=== PATIENT | male | born 1950 | race Caucasian/White ===

== ENCOUNTER 2018-06-22 06:52 | Inpatient (IN) | payer MEDICARE, OTHER ==
[~2018-06-22] VITALS: Ht 180.3 cm; Wt 93.2 kg
[~2018-06-22 06:52] MED LIST: AMLO-93 PO; ASPI-1265 PO; ATEN25TA7 PO; ATOR20TA66 PO; CLOP75TA35 PO; HYDR25TA4 PO; LOSA100T57 PO; PANT-47 PO; POTA20PA40 PO; SERT100T10 PO; TERA2CAP4 PO
[2018-06-22] MEDS ORDERED: levoFLOXACIN-Levaquin 750MG/D5 150 ML IV ONE (07:00)
[2018-06-22 07:17] LABS: CLARITY,URINE CLEAR (Clear); COLOR,URINE YELLOW (Yellow); GLUCOSE, URINE NEGATIVE (Neg); KETONES,URINE NEGATIVE (Neg); LEUKOCYTE ESTERASE ,URINE NEGATIVE (Neg); NITRITES, URINE NEGATIVE (Neg); OCCULT BLOOD,URINE TRACE-LYSED (Neg); PROTEIN,URINE NEGATIVE (Neg)
[2018-06-22 07:18] LABS: UA COLLECTION TYPE CLN CATCH MIDSTREAM
[2018-06-22 07:29] LABS: BACTERIA,URINE NONE SEEN /HPF (Neg); MUCUS STRANDS FEW /LPF (Neg); RBC,URINE 0-2 /HPF (0-2); SQUAMOUS EPITHELIAL CELL,UR FEW /LPF (FEW); WBC,URINE NONE SEEN /HPF (0-4)
[2018-06-22] MEDS ORDERED: methylPREDNISolone sod succ 125mg/2ml vial IV ONE (07:40)
[2018-06-22] MEDS ORDERED: ipratropium/albuterol 3ml nebule NEB ONE (07:40)
[2018-06-22] MEDS ORDERED: albuterol 2.5 MG/3 ML nebule NEB ONE (07:40)
[2018-06-22 08:12] LABS: BASOPHILS # (AUTO) 0.1 X10'3 (0-0.2); BASOPHILS % (AUTO) 0.8 % (0-1); EOSINOPHILS # (AUTO) 0.5 X10'3 (0-0.9); EOSINOPHILS % (AUTO) 4.9 % (0-6); HEMATOCRIT 39.2 % (42.0-52.0); HEMOGLOBIN 13.2 g/dl (14.0-17.9); LYMPHOCYTES # (AUTO) 1.8 X10'3 (1.1-4.8); LYMPHOCYTES % (AUTO) 16.6 % (21-51); MEAN CORPUSCULAR HEMOGLOBIN 33.1 PG (27.0-31.0); MEAN CORPUSCULAR HGB CONC 33.6 % (33.0-36.5); MEAN CORPUSCULAR VOLUME 98.6 FL (78-98); MEAN PLATELET VOLUME 8.9 FL (7.4-10.4); MONOCYTES # (AUTO) 0.9 X10'3 (0-0.9); MONOCYTES % (AUTO) 7.9 % (2-12); NEUTROPHILS # (AUTO) 7.5 X10'3 (1.8-7.7); NEUTROPHILS % (AUTO) 69.8 % (42-75); PLATELET COUNT 231 X10'3 (140-440); RED BLOOD COUNT 3.98 X10'6 (4.70-6.10); RED CELL DISTRIBUTION WIDTH 13.7 % (11.5-14.5); WHITE BLOOD COUNT 10.8 X10'3 (4.5-11.0)
[2018-06-22 08:23] LABS: ALANINE AMINOTRANSFERASE 17 U/L (12-78); ALBUMIN/GLOBULIN RATIO 0.8 (1.1-1.5); ALKALINE PHOSPHATASE 83 IU/L (46-116); ANION GAP 9 (8-16); ASPARTATE AMINO TRANSFERASE 13 U/L (10-37); BILIRUBIN,TOTAL 0.5 MG/DL (0.1-1.0); BLOOD UREA NITROGEN 16 MG/DL (7-18); BUN/CREATININE RATIO 14.4 (5.4-32.0); CALCIUM 8.1 MG/DL (8.5-10.1); CHLORIDE 102 MMOL/L (99-107); CREATININE 1.11 MG/DL (0.60-1.10); GLUCOSE 113 MG/DL (70-104); POTASSIUM 3.3 MMOL/L (3.5-5.1); SODIUM 140 MMOL/L (135-145); TOTAL CARBON DIOXIDE 29.2 MMOL/L (24-32); TOTAL PROTEIN 6.6 G/DL (6.4-8.2); eGFR 66 ML/MIN
[2018-06-22 08:30] LABS: MAGNESIUM 1.7 MG/DL (1.5-2.4)
[2018-06-22 09:55] VITALS: BP 144/68
[2018-06-22 11:00] VITALS: BP 155/78
[2018-06-22] MEDS ORDERED: ondansetron/PF 4mg/2ml inj IV PRN (11:10)
[2018-06-22] MEDS ORDERED: mag hydrox/Alum hydrox/simeth 30ml oral suspension PO PRN (11:10)
[2018-06-22] MEDS ORDERED: magnesium 4gm in 100ml NS 100 ML IV PRN (11:10)
[2018-06-22] MEDS ORDERED: magnesium Cl slow-release 64mg tablet PO PRN (11:10)
[2018-06-22] MEDS ORDERED: morphine 4 MG/ML inj SYRINge IV PRN (11:10)
[2018-06-22] MEDS ORDERED: potassium Cl 40MEQ/NS 500ml 500 ML IV PRN ×2 (11:10)
[2018-06-22] MEDS ORDERED: potassium Cl 20 mEq SR tablet PO PRN (11:10)
[2018-06-22] MEDS ORDERED: acetaminophen 325mg tablet PO PRN (11:10)
[2018-06-22] MEDS ORDERED: magnesium hydroxide 30ml (MOM) UD suspension PO PRN (11:10)
[2018-06-22] MEDS: pantoprazole 40mg Tablet.DR PO SCH (11:29)
[2018-06-22] MEDS: atorvastatin 20mg tablet PO SCH (11:29)
[2018-06-22] MEDS: sertraline 50mg tablet PO SCH (11:29)
[2018-06-22] MEDS: clopidogrel 75mg tablet PO SCH (11:29)
[2018-06-22] MEDS: HYDROchlorothiazide 12.5mg capsule PO SCH (11:29)
[2018-06-22] MEDS: CefTRIAXone/D5W-Rocephin 1gm 50 ML IV SCH (11:29)
[2018-06-22] MEDS: potassium Cl 20 mEq SR tablet PO PRN ×3 (11:41→20:28)
[2018-06-22] MEDS: azithromycin/NS 500mg/250ml 250 ML IV SCH (12:12)
[2018-06-22 16:00] VITALS: BP 123/79
[2018-06-22] MEDS: methylPREDNISolone sod succ/PF 40mg inj. IV SCH ×2 (16:05→23:40)
[2018-06-22 19:00] VITALS: BP 146/65
[2018-06-22] MEDS: atenolol 25mg tablet PO SCH (20:27)
[2018-06-22] MEDS: Terazosin 1mg capsule PO SCH (20:27)
[2018-06-22] MEDS: temazepam 15mg capsule PO PRN (21:50)
[2018-06-22 23:00] VITALS: BP 155/71
[2018-06-23] MEDS: temazepam 15mg capsule PO PRN (02:31)
[2018-06-23 03:00] VITALS: BP 135/84
[2018-06-23 06:00] VITALS: BP 137/92
[2018-06-23 06:41] LABS: BASOPHILS % (AUTO) 0.1 % (0-1); EOSINOPHILS # (AUTO) 0.2 X10'3 (0-0.9); EOSINOPHILS % (AUTO) 0.8 % (0-6); HEMOGLOBIN 13.6 g/dl (14.0-17.9); LYMPHOCYTES # (AUTO) 1.5 X10'3 (1.1-4.8); LYMPHOCYTES % (AUTO) 7.2 % (21-51); MEAN CORPUSCULAR HEMOGLOBIN 32.9 PG (27.0-31.0); MEAN CORPUSCULAR HGB CONC 33.1 % (33.0-36.5); MEAN CORPUSCULAR VOLUME 99.4 FL (78-98); MEAN PLATELET VOLUME 9.5 FL (7.4-10.4); MONOCYTES # (AUTO) 0.6 X10'3 (0-0.9); MONOCYTES % (AUTO) 2.8 % (2-12); NEUTROPHILS # (AUTO) 18.6 X10'3 (1.8-7.7); NEUTROPHILS % (AUTO) 89.1 % (42-75); PLATELET COUNT 247 X10'3 (140-440); RED BLOOD COUNT 4.12 X10'6 (4.70-6.10); RED CELL DISTRIBUTION WIDTH 13.9 % (11.5-14.5); WHITE BLOOD COUNT 20.9 X10'3 (4.5-11.0)
[2018-06-23 06:51] LABS: ALANINE AMINOTRANSFERASE 12 U/L (12-78); ALBUMIN 2.9 G/DL (3.4-5.0); ALBUMIN/GLOBULIN RATIO 0.7 (1.1-1.5); ALKALINE PHOSPHATASE 84 IU/L (46-116); ANION GAP 8 (8-16); ASPARTATE AMINO TRANSFERASE 0 U/L (10-37); BILIRUBIN,TOTAL 0.4 MG/DL (0.1-1.0); BLOOD UREA NITROGEN 17 MG/DL (7-18); BUN/CREATININE RATIO 17.3 (5.4-32.0); CALCIUM 8.6 MG/DL (8.5-10.1); CHLORIDE 105 MMOL/L (99-107); CREATININE 0.98 MG/DL (0.60-1.10); GLUCOSE 161 MG/DL (70-104); MAGNESIUM 1.9 MG/DL (1.5-2.4); POTASSIUM 3.7 MMOL/L (3.5-5.1); SODIUM 141 MMOL/L (135-145); TOTAL PROTEIN 6.8 G/DL (6.4-8.2); eGFR 76 ML/MIN
[2018-06-23 07:40] VITALS: BP_SYST 137
[2018-06-23] MEDS: atenolol 25mg tablet PO SCH (07:40)
[2018-06-23] MEDS: clopidogrel 75mg tablet PO SCH (07:40)
[2018-06-23] MEDS: Terazosin 1mg capsule PO SCH (07:41)
[2018-06-23] MEDS: HYDROchlorothiazide 12.5mg capsule PO SCH (07:42)
[2018-06-23] MEDS: atorvastatin 20mg tablet PO SCH (07:42)
[2018-06-23] MEDS: CefTRIAXone/D5W-Rocephin 1gm 50 ML IV SCH (07:43)
[2018-06-23] MEDS: sertraline 50mg tablet PO SCH (07:43)
[2018-06-23] MEDS: methylPREDNISolone sod succ/PF 40mg inj. IV SCH (07:43)
[2018-06-23] MEDS: pantoprazole 40mg Tablet.DR PO SCH (07:44)
[2018-06-23] MEDS ORDERED: amLODIPine 5mg tablet PO SCH (08:00)
[2018-06-23] MEDS ORDERED: losartan 50mg tablet PO SCH (08:00)
[2018-06-23] MEDS ORDERED: K and/or MAG REPLACEMENT MC SCH (08:00)
[2018-06-23] MEDS ORDERED: aspirin 81mg tab.chew PO SCH (08:00)
[2018-06-23] MEDS ORDERED: lisinopril 20mg tablet PO SCH (08:00)
[2018-06-23] MEDS: azithromycin/NS 500mg/250ml 250 ML IV SCH (08:03)
[2018-06-23] MEDS ORDERED: nitroGLYCERIN 0.4mg SUBLingual tab SL PRN (09:30)
[2018-06-23] MEDS ORDERED: nicotine 21mg patch - 24 hr TD SCH (11:11)
== END 2018-06-23 11:45 | disposition left against medical advice (07) | DRG 682 ==
LOC: ER 06:52 → ED HOLD 09:13 → PCU 3S 09:54
PROVIDERS: ADMIT Internal Medicine; ATTEND Hospitalist
DX: N17.9 Acute kidney failure, unspecified (principal); J18.9 Pneumonia, unspecified organism; J96.01 Acute respiratory failure with hypoxia; J44.1 Chronic obstructive pulmonary disease with (acute) exacerbation; J44.0 Chronic obstructive pulmonary disease with (acute) lower respiratory infection; F17.200 Nicotine dependence, unspecified, uncomplicated; G47.00 Insomnia, unspecified; I11.0 Hypertensive heart disease with heart failure; I25.10 Atherosclerotic heart disease of native coronary artery without angina pectoris; I50.9 Heart failure, unspecified; F32.9 Major depressive disorder, single episode, unspecified; Z53.21 Procedure and treatment not carried out due to patient leaving prior to being seen by health care provider; Z79.82 Long term (current) use of aspirin; Z79.899 Other long term (current) drug therapy; Z82.49 Family history of ischemic heart disease and other diseases of the circulatory system
CPT/HCPCS: 36415; 71045; 80053; 81001; 83605; 83735; 83880; 84145; 84484; 85025; 87040; 87070; 93005; 93306; 94640; 94760; 96365; 96375; 99285; G0378; J0456; J0696; J1956; J2920; J2930